=== PATIENT | female | born 1945 | race Caucasian/White ===

== ENCOUNTER → 2017-11-22 17:34 | Outpatient (CLI) | payer MEDICARE, OTHER, SELFPAY ==
[2017-11-22 17:36] LABS: Mucous, Urine 0 SEEN /hpf (<or=2+)
[2017-11-22 17:52] LABS: Color, Urine Yellow (Yellow); Glucose, Dipstick Normal (Normal); Ketone-Dipstick Negative (Negative); Leukocyte Esterase-Dipstick 500 /ul (Negative); Nitrite-Dipstick Negative (Negative); Occult Blood-Urine 50 /ul (Negative); Protein-Dipstick Negative (Negative); Specific Gravity, Urine 1.005 (1.002-1.030); Urine Bilirubin Dipstick Negative (Negative); Urine Clarity Cloudy (Clear); Urine Urobilinogen Normal (Normal)
[2017-11-22 18:39] LABS: Bacteria 1+ /hpf (None Seen); Red Blood Cells-Urine 0-5 SEEN /hpf (0-5); Squamous Epithelial Cells - UA 0-5 SEEN /hpf (5-10); White Blood Cells >100 SEEN /hpf (0-5)
== END ==
PROVIDERS: Visit Provider Physician Assistant Surgical
DX: N39.0 Urinary tract infection, site not specified (principal); R30.0 Dysuria
CPT/HCPCS: 81001; 87077; 87086; 87088; 87186

== ENCOUNTER → 2018-08-15 06:15 | Outpatient (CLI) | payer MEDICARE, OTHER, SELFPAY ==
[2018-08-05 15:59] VITALS: BMI 25.8
--- NOTE | 2018-08-15 06:37 | EKG12_ITS ---
Test Reason : CP Blood Pressure : / mmHG Vent. Rate : 060 BPM Atrial Rate : 060 BPM P-R Int : 160 ms QRS Dur : 084 ms QT Int : 442 ms P-R-T Axes : 049 012 040 degrees QTc Int : 442 ms Normal sinus rhythm Normal ECG Confirmed by MICHAEL WATSON, LUCINA ([id number]), purchase request editor SKYLER COY ([id number] on 08/18/2018 1:28:53 PM Referred By: Isaiah Zapata Confirmed By:LUCINA RODRIGUEZ MD
--- NOTE | 2018-08-15 14:30 | STRESSREP ---
Stress Test Report Date: 08/15/2018 Procedure: Pharmacologic stress nuclear imaging study Indications: Chest pain Consent: Per the patient Procedure: The patient underwent pharmacologic (Regadenoson) evaluation with a peak heart rate of 107 beats per minute (73 predicted maximal heart rate) and a peak blood pressure of 142/80 mmHg. The baseline ECG demonstrated normal sinus rhythm. The peak pharmacologic ECG demonstrated no obvious ECG changes. There were no cardiac dysrhythmias pretest, during pharmacologic infusion, or recovery. There was no complaint of chest discomfort during pharmacologic infusion or recovery. The examination was discontinued secondary to completion of protocol. Impression: 1. Pharmacologic (Regadenoson) evaluation 2. Peak pharmacologic ECG with no obvious ECG changes. 3. There were no cardiac dysrhythmias pretest, during pharmacologic infusion, or recovery. 4. Nuclear images pending Myocardial perfusion imaging study: Technique: The patient was injected with 11.4 millicuries of technetium 99m Cardiolite and subsequently rest SPECT Cardiolite nuclear imaging was obtained in the horizontal long, vertical long, and short axis views. The patient underwent pharmacologic (Regadenoson) evaluation with a peak heart rate of 107 beats per minute (73 % percent predicted maximal heart rate) and a peak blood pressure of 142/80 mmHg. The patient was injected with 33.1 millicuries of technetium 99m Cardiolite and subsequently stress SPECT Cardiolite nuclear imaging was obtained in the horizontal long, vertical long, and short axis views. A gated Cardiolite study at peak stress was obtained. Interpretation: Rest and stress SPECT Cardiolite nuclear imaging status post realignment, normalization, and attenuation correction demonstrate relative uniform tracer uptake and myocardial perfusion appearing within normal limits. There is end systolic thickening and brightening. The gated Cardiolite study demonstrates myocardial thickening and inward wall motion. The reported LVEF is 55 %. Impression: 1. Rest and stress SPECT Cardiolite nuclear imaging demonstrate relative uniform tracer uptake and myocardial perfusion appearing within normal limits. 2. The gated Cardiolite study reports an LVEF of 55 %. This note was generated with [employer] software. It may contain incorrect words, spelling, and punctuation that were not noted in checking the note before signing.
== END ==
PROVIDERS: Family Provider Family Medicine; PCP Family Medicine; Referring Provider Family Medicine; Visit Provider Family Medicine
DX: R07.9 Chest pain, unspecified (principal)
CPT/HCPCS: 78452; 93005; 93017; A9500; A4216; J2785

== ENCOUNTER → 2018-11-13 09:53 | Outpatient (CLI) | payer MEDICARE, OTHER, SELFPAY ==
[2018-11-12 14:01] VITALS: BMI 25.8
[2018-11-13 12:24] LABS: Absolute Lymphocyte Count 2.72 X10^3/ul (0.83-4.51); Absolute Neutrophil Count 3.2 X10^3/uL (2.0-7.7); Basophil# 0.05 X10^3/uL; Basophil% 0.7 % (0-1); Eosinophil# 0.21 X10^3/uL; Hematocrit 40.6 % (37-47); Hemoglobin 12.9 g/dl (12.0-15.0); Lymphocyte # 2.72 X10^3/ul (4.0); Lymphocyte % 38.3 % (19-41); Mean Corp Hgb Conc 31.8 g/gl (32-36); Mean Corpuscular Volume 88.3 fL (81-99); Mean Platelet Vol. 10.6 fl (6.2-12.0); Monocyte# 0.86 X10^3/uL; Monocyte% 12.1 % (0-10); Neutrophil # 3.23 X10^3/uL (2.7-7.7); Neutrophil % 45.5 % (47-70); Platelet Count 294 K/mm3 (150-450); RBC Distribution Width CV 13.9 % (11.6-14.6); RBC Distribution Width SD 45.1 fl (35.1-43.9); White Blood Count 7.1 K/mm3 (4.4-11.0)
[2018-11-13 12:25] LABS: POSITIVE COUNT NO; POSITIVE DIFFERENTIAL NO; POSITIVE MORPHOLOGY NO
[2018-11-13 12:54] LABS: ALB/GLOB Ratio 1.2 RATIO (0.9-2.4); AST(SGOT) 27 U/L (15-37); Alanine Aminotransfer ALT/SGPT 31 U/L (13-56); Albumin, Serum 3.9 g/dL (3.2-5.0); Alkaline Phosphatase 58 U/L (45-117); Anion Gap 8 (5-15); BUN 7 mg/dL (7-18); BUN/Creat Ratio 8.9 RATIO (10-20); Calcium,Total 8.6 mg/dL (8.5-10.1); Chloride 100 mmol/L (98-107); Cholesterol 230 mg/dL (200); Creatinine, Serum 0.79 mg/dL (0.55-1.02); EST Glomerular Filtration Rate 76 mL/min (>60); Est Glom Filt Rate - Afr Amer 92 mL/min (>60); Globulin 3.2 g/dL (2.2-4.2); Glucose 89 mg/dL (74-106); High Density Lipoprotein 56 mg/dL; Potassium 3.3 mmol/L (3.5-5.1); Protein, Total 7.1 g/dL (6.4-8.2); Sodium Level 139 mmol/L (136-145); Thyroid Stim Hormone (TSH) 1.32 uIU/mL (0.358-3.74); Triglycerides 197 mg/dL; Very Low Density Lipoprotein 39 mg/dL (5-40)
== END ==
PROVIDERS: Family Provider Family Medicine; PCP Family Medicine; Visit Provider Family Medicine
DX: I10 Essential (primary) hypertension (principal); R07.9 Chest pain, unspecified; D64.9 Anemia, unspecified; K21.9 Gastro-esophageal reflux disease without esophagitis
CPT/HCPCS: 36415; 80053; 80061; 84443; 85025

== ENCOUNTER → 2018-12-23 | Outpatient (CLI) | payer MEDICARE, OTHER, SELFPAY ==
[2018-11-12 14:01] VITALS: BMI 25.8
--- NOTE | 2018-12-23 14:22 | BI_ITS ---
MAMMOGRAPHY - BILATERAL SCREENING REASON FOR EXAM: Female, 73 years old. Routine annual screening examination. PERTINENT HISTORY: Non-contributory. TECHNIQUE: Digital bilateral breast merlin (3D mammographic acquisition) in the CC and MLO projections. 2-D mediolateral oblique (MLO) and craniocaudad (CC) views of both breasts were obtained. CAD: Full Field Digital Mammography with Computer Added Detection was performed. COMPARISON: Comparison is made with prior outside examination dated May 07, 2017. FINDINGS: Breast Composition: The breasts are heterogeneously dense, which may obscure small masses. There are no dominant masses or suspicious calcifications. No other significant abnormalities are identified. There has been no significant change since the prior study. BI/SCREEN MAMM (CAD) W/MERLIN BILAT IMPRESSION: Stable bilateral screening mammogram. Yearly follow-up mammogram recommended. (A) ASSESSMENT CATEGORY: BIRADS Category 1: Negative. A letter regarding these results will be sent to the patient by the facility within 30 days. Approximately 10% of breast cancers are not detected by mammography. A normal mammogram should not delay biopsy of a clinically suspicious abnormality. [id number] Electronically Signed: Timbo Cox, at 8:49 EDT , Service support ,
--- NOTE | 2018-12-23 14:25 | BD_ITS ---
STUDY: DUAL ENERGY X-RAY ABSORPTIOMETRY / DXA REASON FOR EXAM: Female, 73 years old. The patient is postmenopausal. Loss of height. TECHNIQUE: Bone Mineral Density (BMD) measurements of lumbar spine and bilateral hips were obtained. COMPARISON: None. FINDINGS: Lumbar Spine (L1-L4): g/cm2 (0.948) / T-score (-1.8) / Z-score (-0.1) Findings are suggestive of osteopenia with a moderate fracture risk. Left Femur Total: g/cm2 (0.840) / T-score (-1.3) / Z-score (0.4) Left Femoral Neck: g/cm2 (0.821) / T-score (-1.6) / Z-score (0.3) Right Femur Total: g/cm2 (0.878) / T-score (-1.0) / Z-score (0.7) Right Femoral Neck: g/cm2 (0.842) / T-score (-1.4) / Z-score (0.5) BD/Dexa Bone Density Study IMPRESSION: The patient is considered osteopenic as outlined below according to World Irving Organization (WHO) criteria with a moderate fracture risk. Reference Information: The T-score is the number of standard deviations above or below the standard which is normal for young adults at their peak bone mineral density. The World Health Organization (WHO) interprets the T-scores as follows: Above -1 Normal bone density Between -1 and -2.5 Osteopenia Equal to / or below -2.5 Osteoporosis As a practical clinical guideline, osteopenia may be graded as follows: Mild -1 through -1.5 Moderate -1.6 through -2.0 Severe -2.1 through -2.4 The Z-score is the number of standard deviations above or below age-matched controls. A Z-score of less than -1.5 would be considered abnormal. References: 1. NIH Osteoporosis and Related Bone Diseases http://www.osteo.org 2. International Society for Clinical Densitometry http://www.iscd.org 3. National Osteoporosis Foundation http://www.nof.org Electronically Signed: Timbo Cox, at 13:33 EDT , Service support ,
== END | disposition home or self-care (01) ==
LOC: OPBD 14:20
PROVIDERS: Family Provider Family Medicine; PCP Family Medicine; Referring Provider Family Medicine; Visit Provider Family Medicine
DX: M81.0 Age-related osteoporosis without current pathological fracture (principal); Z12.31 Encounter for screening mammogram for malignant neoplasm of breast
CPT/HCPCS: 77063; 77067; 77080

== ENCOUNTER → 2020-03-22 | Outpatient (CLI) | payer MEDICARE, OTHER, SELFPAY ==
[2020-03-22 10:11] VITALS: BMI 25.8
[2020-03-22 12:57] LABS: ALB/GLOB Ratio 1.1 RATIO (0.9-2.4); AST(SGOT) 19 U/L (15-37); Alanine Aminotransfer ALT/SGPT 29 U/L (13-56); Albumin, Serum 3.7 g/dL (3.2-5.0); Alkaline Phosphatase 58 U/L (45-117); Anion Gap 5 (5-15); BUN 11 mg/dL (7-18); Calcium,Total 8.8 mg/dL (8.5-10.1); Chloride 100 mmol/L (98-107); Cholesterol 170 mg/dL (200); Creatinine, Serum 0.85 mg/dL (0.55-1.02); EST Glomerular Filtration Rate 69 mL/min (>60); Est Glom Filt Rate - Afr Amer 84 mL/min (>60); Globulin 3.3 g/dL (2.2-4.2); Glucose 103 mg/dL (74-106); High Density Lipoprotein 49 mg/dL; Sodium Level 136 mmol/L (136-145); Triglycerides 215 mg/dL; Very Low Density Lipoprotein 43 mg/dL (5-40)
== END | disposition home or self-care (01) ==
LOC: BIMLAB 10:44
PROVIDERS: PCP Family Medicine; Referring Provider Family Medicine; Visit Provider Family Medicine
DX: I10 Essential (primary) hypertension (principal); R07.9 Chest pain, unspecified
CPT/HCPCS: 36415; 80053; 80061

== ENCOUNTER → 2020-07-22 | Outpatient (CLI) | payer MEDICARE, OTHER, SELFPAY | END | disposition home or self-care (01) | LOC: LABSPEC 13:59 | PROVIDERS: PCP Family Medicine; Referring Provider Nurse Practitioner Family; Visit Provider Nurse Practitioner Family | DX: U07.1 COVID-19 (principal); R05 Cough; R50.9 Fever, unspecified | CPT/HCPCS: 87635; 87804; U0003 ==

== ENCOUNTER 2020-11-23 08:58 | Outpatient (RCR) | payer MEDICARE, OTHER, SELFPAY | END 2021-01-24 23:59 | LOC: IMMUN 08:58 | PROVIDERS: PCP Family Medicine; Visit Provider Family Medicine | DX: Z23 Encounter for immunization (principal) | CPT/HCPCS: 0001A; 0002A; 91300 ==

== ENCOUNTER → 2020-12-29 | Outpatient (CLI) | payer MEDICARE, OTHER, SELFPAY ==
[2020-12-29 10:41] VITALS: BMI 25.8
== END | disposition home or self-care (01) ==
LOC: LABSPEC 11:19
PROVIDERS: PCP Family Medicine; Referring Provider Family Medicine; Visit Provider Family Medicine
DX: N89.8 Other specified noninflammatory disorders of vagina (principal)
CPT/HCPCS: 87070; 87205

== ENCOUNTER → 2021-04-11 10:49 | Outpatient (CLI) | payer MEDICARE, OTHER, SELFPAY ==
[2021-04-11 12:30] LABS: Absolute Lymphocyte Count 1.96 X10^3/uL (0.83-4.51); Absolute Neutrophil Count 3.8 X10^3/uL (2.0-7.7); Basophil# 0.06 X10^3/uL; Basophil% 0.9 % (0-1); Eosinophil# 0.24 X10^3/uL; Eosinophils% 3.5 % (0-5); Hematocrit 38.7 % (37-47); Hemoglobin 12.1 g/dL (12.0-15.0); Lymphocyte # 1.96 X10^3/ul (0.83-4.51); Lymphocyte % 28.7 % (19-41); Mean Corp Hgb Conc 31.3 g/dL (32-36); Mean Corpuscular Hgb 28.1 pg (27.0-32.0); Mean Corpuscular Volume 89.8 fL (81-99); Mean Platelet Vol. 10.1 fl (6.2-12.0); Monocyte# 0.77 X10^3/uL; Monocyte% 11.3 % (0-10); NRBC Flagged by Analyzer 0 % (0-5); Neutrophil # 3.75 X10^3/uL (2.7-7.7); Platelet Count 283 K/mm3 (150-450); RBC Distribution Width CV 13.8 % (11.6-14.6); RBC Distribution Width SD 45.5 fl (35.1-43.9); Red Blood Count 4.31 M/mm3 (4.2-5.4); White Blood Count 6.8 K/mm3 (4.4-11.0)
[2021-04-11 12:41] LABS: ALB/GLOB Ratio 1.1 RATIO (0.9-2.4); AST(SGOT) 28 U/L (15-37); Alanine Aminotransfer ALT/SGPT 33 U/L (13-56); Albumin, Serum 3.7 g/dL (3.2-5.0); Alkaline Phosphatase 65 U/L (45-117); Anion Gap 6 (5-15); BUN 20 mg/dL (7-18); BUN/Creat Ratio 22.6 RATIO (10-20); Calcium,Total 9.1 mg/dL (8.5-10.1); Chloride 105 mmol/L (98-107); Cholesterol 206 mg/dL (200); Creatinine, Serum 0.88 mg/dL (0.55-1.02); EST Glomerular Filtration Rate 66 mL/min (>60); Est Glom Filt Rate - Afr Amer 80 mL/min (>60); Globulin 3.5 g/dL (2.2-4.2); Glucose 116 mg/dL (74-106); High Density Lipoprotein 57 mg/dL; Potassium 3.8 mmol/L (3.5-5.1); Protein, Total 7.2 g/dL (6.4-8.2); Sodium Level 141 mmol/L (136-145); Triglycerides 198 mg/dL; Very Low Density Lipoprotein 40 mg/dL (5-40)
== END ==
PROVIDERS: PCP Family Medicine; Referring Provider Family Medicine; Visit Provider Family Medicine
DX: I10 Essential (primary) hypertension (principal)
CPT/HCPCS: 36415; 80053; 80061; 85025

== ENCOUNTER 2021-10-17 13:26 | Outpatient (CLI) | payer MEDICARE, OTHER, SELFPAY ==
[2021-10-17 15:32] LABS: Absolute Lymphocyte Count 3.47 X10^3/uL (0.83-4.51); Absolute Neutrophil Count 4.2 X10^3/uL (2.0-7.7); Basophil# 0.08 X10^3/uL; Basophil% 0.9 % (0-1); Eosinophil# 0.32 X10^3/uL; Eosinophils% 3.6 % (0-5); Hematocrit 38.9 % (37-47); Hemoglobin 12.6 g/dL (12.0-15.0); Lymphocyte # 3.47 X10^3/ul (0.83-4.51); Lymphocyte % 38.6 % (19-41); Mean Corp Hgb Conc 32.4 g/dL (32-36); Mean Corpuscular Hgb 28.2 pg (27.0-32.0); Mean Platelet Vol. 10.3 fl (6.2-12.0); Monocyte# 0.86 X10^3/uL; Monocyte% 9.6 % (0-10); NRBC Flagged by Analyzer 0 % (0-5); Neutrophil # 4.21 X10^3/uL (2.7-7.7); Neutrophil % 46.9 % (47-70); Platelet Count 309 K/mm3 (150-450); RBC Distribution Width CV 13.8 % (11.6-14.6); RBC Distribution Width SD 44.4 fl (35.1-43.9); Red Blood Count 4.47 M/mm3 (4.2-5.4)
== END 2021-10-17 23:59 | disposition home or self-care (01) ==
LOC: BIMLAB 13:27
PROVIDERS: PCP Family Medicine; Referring Provider Family Medicine; Visit Provider Family Medicine
DX: I10 Essential (primary) hypertension (principal)
CPT/HCPCS: 36415; 85025

== ENCOUNTER → 2022-11-29 | Outpatient (CLI) | payer MEDICARE, OTHER, SELFPAY ==
[2022-11-29 17:00] LABS: ALB/GLOB Ratio 1.1 RATIO (0.9-2.4); AST(SGOT) 25 U/L (15-37); Alanine Aminotransfer ALT/SGPT 32 U/L (13-56); Albumin, Serum 3.8 g/dL (3.2-5.0); Alkaline Phosphatase 76 U/L (45-117); Anion Gap 4 (5-15); BUN 17 mg/dL (7-18); BUN/Creat Ratio 19.8 RATIO (10-20); Calcium,Total 9.5 mg/dL (8.5-10.1); Chloride 100 mmol/L (98-107); Creatinine, Serum 0.86 mg/dL (0.55-1.02); EST Glomerular Filtration Rate 68 mL/min (>60); Est Glom Filt Rate - Afr Amer 82 mL/min (>60); Globulin 3.5 g/dL (2.2-4.2); Glucose 104 mg/dL (74-106); Potassium 3.8 mmol/L (3.5-5.1); Protein, Total 7.3 g/dL (6.4-8.2); Sodium Level 136 mmol/L (136-145)
[2022-11-29 17:01] LABS: Vitamin D,25 Hydroxy 58.2 ng/mL
== END | disposition home or self-care (01) ==
LOC: BIMLAB 15:52
PROVIDERS: PCP Family Medicine; Visit Provider Family Medicine
DX: M81.0 Age-related osteoporosis without current pathological fracture (principal)
CPT/HCPCS: 36415; 80053; 82306

== ENCOUNTER → 2022-12-11 | Outpatient (CLI) | payer MEDICARE, OTHER, SELFPAY ==
--- NOTE | 2022-12-11 13:47 | BD_ITS ---
STUDY: DUAL ENERGY X-RAY ABSORPTIOMETRY / DXA REASON FOR EXAM: Female, 77 years old. Osteoporosis TECHNIQUE: Bone Mineral Density (BMD) measurements of lumbar spine and bilateral hips were obtained. COMPARISON: Comparison is made with prior study dated December 23, 2018. FINDINGS: Lumbar Spine (L1-L4): g/cm2 (0.987) / T-score (-0.5) / Z-score (2.1) Findings are suggestive of normal bone density with a low fracture risk. Left Femur Total: g/cm2 (0.855) / T-score (-0.7) / Z-score (1.3) Left Femoral Neck: g/cm2 (0.693) / T-score (-1.4) / Z-score (0.8) Right Femur Total: g/cm2 (0.883) / T-score (-0.5) / Z-score (1.5) Right Femoral Neck: g/cm2 (0.711) / T-score (-1.2) / Z-score (1.0) The T-Scores on the most recent prior examination were: Lumbar Spine (L1-L4): There has been improvement of bone density since the previous examination. Left Femur Total: which represents an improvement of 9.8%. Right Femur Total: which represents an improvement of 8.2%. BD/Dexa Bone Density Study IMPRESSION: The patient is considered osteopenic as outlined below according to World Irving Organization (WHO) criteria with a low fracture risk. There has been improvement of bone density since the previous examination. Reference Information: The T-score is the number of standard deviations above or below the standard which is normal for young adults at their peak bone mineral density. The World Health Organization (WHO) interprets the T-scores as follows: Above -1 Normal bone density Between -1 and -2.5 Osteopenia Equal to / or below -2.5 Osteoporosis As a practical clinical guideline, osteopenia may be graded as follows: Mild -1 through -1.5 Moderate -1.6 through -2.0 Severe -2.1 through -2.4 The Z-score is the number of standard deviations above or below age-matched controls. A Z-score of less than -1.5 would be considered abnormal. References: 1. NIH Osteoporosis and Related Bone Diseases www osteo.org 2. International Society for Clinical Densitometry www iscd.org 3. National Osteoporosis Foundation www nof.org Electronically Signed: Timbo Cox MD at 14:45 EDT ,
== END | disposition home or self-care (01) ==
LOC: OPBD 13:42
PROVIDERS: PCP Family Medicine; Referring Provider Family Medicine; Visit Provider Family Medicine
DX: M81.0 Age-related osteoporosis without current pathological fracture (principal)
CPT/HCPCS: 77080

== ENCOUNTER → 2023-03-08 | Outpatient (CLI) | payer MEDICARE, OTHER, SELFPAY ==
[2023-03-08 13:22] LABS: ALB/GLOB Ratio 0.9 RATIO (0.9-2.4); AST(SGOT) 26 U/L (15-37); Alanine Aminotransfer ALT/SGPT 31 U/L (13-56); Albumin, Serum 3.7 g/dL (3.2-5.0); Alkaline Phosphatase 73 U/L (45-117); Anion Gap 7 (5-15); BUN 13 mg/dL (7-18); BUN/Creat Ratio 12.7 RATIO (10-20); Chloride 100 mmol/L (98-107); Cholesterol 152 mg/dL (200); Creatinine, Serum 1.02 mg/dL (0.55-1.02); EST Glomerular Filtration Rate 56 mL/min (>60); Est Glom Filt Rate - Afr Amer 67 mL/min (>60); Globulin 3.9 g/dL (2.2-4.2); Glucose 173 mg/dL (74-106); High Density Lipoprotein 59 mg/dL; Potassium 3.6 mmol/L (3.5-5.1); Protein, Total 7.6 g/dL (6.4-8.2); Sodium Level 135 mmol/L (136-145); Triglycerides 110 mg/dL; Very Low Density Lipoprotein 22 mg/dL (5-40)
== END | disposition home or self-care (01) ==
LOC: BIMLAB 09:40
PROVIDERS: PCP Family Medicine; Referring Provider Family Medicine; Visit Provider Family Medicine
DX: I10 Essential (primary) hypertension (principal)
CPT/HCPCS: 36415; 80053; 80061

== ENCOUNTER → 2023-03-12 | Outpatient (CLI) | payer MEDICARE, OTHER, SELFPAY | END | disposition home or self-care (01) | LOC: BIMLAB 15:24 | PROVIDERS: PCP Family Medicine; Referring Provider Internal Medicine; Visit Provider Internal Medicine | DX: R73.09 Other abnormal glucose (principal) | CPT/HCPCS: 36415; 83036 ==

== ENCOUNTER → 2023-06-18 | Outpatient (CLI) | payer MEDICARE, OTHER, SELFPAY ==
--- NOTE | 2023-06-18 10:43 | RAD_ITS ---
STUDY: X-RAY - CERVICAL SPINE REASON FOR EXAM: Female, 78 years old. RADICULOPATHY, CERVICOTHORACIC REGION TECHNIQUE: 5 view(s) of the cervical spine were obtained. COMPARISON: None FINDINGS: Normal anterior atlantoaxial articulation. Normal odontoid process. Normal cervical lordosis. There is multi-level endplate spondylosis. There is multi-level degenerative disc disease with multilevel disc space narrowing. Normal visualized intervertebral neuroforamina. The soft tissue structures are unremarkable. RAD/Cerv Spine 4 or 5 Views IMPRESSION: Moderate degenerative disc disease lower cervical spine. MRI may be useful. Electronically Signed: Reece Berumen MD at 20:41 EDT ,
== END | disposition home or self-care (01) ==
LOC: RAD.FUTURE 10:41 → RAD 10:42
PROVIDERS: PCP Family Medicine; Referring Provider Chiropractor; Visit Provider Chiropractor
DX: M45.A6 Non-radiographic axial spondyloarthritis of lumbar region (principal); M45.A7 Non-radiographic axial spondyloarthritis of lumbosacral region; M99.01 Segmental and somatic dysfunction of cervical region; M99.02 Segmental and somatic dysfunction of thoracic region; M99.03 Segmental and somatic dysfunction of lumbar region; M51.34 Other intervertebral disc degeneration, thoracic region; M54.13 Radiculopathy, cervicothoracic region
CPT/HCPCS: 72050

== ENCOUNTER → 2023-09-03 | Outpatient (CLI) | payer MEDICARE, OTHER, SELFPAY ==
--- NOTE | 2023-09-03 09:00 | RAD_ITS ---
STUDY: X-RAY - ESOPHAGUS (BARIUM SWALLOW) WITH FLUOROSCOPY REASON FOR EXAM: Female, 78 years old. DYSPHAGIA TECHNIQUE: 11 view(s) of the esophagus were obtained following swallowing of barium. FLUOROSCOPY TIME (if supplied): (43 seconds) minutes/seconds. 7.11 mGy COMPARISON: None. FINDINGS: There is no demonstrated esophageal foreign body. There is no demonstrated stricture or mucosal abnormality. Normal gastroesophageal junction, without a demonstrated hiatal hernia. The patient ingested a 12 mm tablet of barium without any difficulty. Normal visualized aortic arch and descending thoracic aorta. Normal visualized pulmonary parenchyma. There are diffuse degenerative changes of the visualized thoracic spine. RAD/Esophagus Single Contrast IMPRESSION: Normal plain film x-ray examination (barium swallow) of the esophagus. Electronically Signed: Timbo Cox MD at 10:04 [facility] ,
== END | disposition home or self-care (01) ==
LOC: RAD 08:53
PROVIDERS: PCP Family Medicine; Referring Provider Internal Medicine Gastroenterology; Visit Provider Internal Medicine Gastroenterology
DX: R13.10 Dysphagia, unspecified (principal)
CPT/HCPCS: 74220

== ENCOUNTER 2023-10-07 14:30 | Outpatient (RCR) | payer MEDICARE, OTHER, SELFPAY ==
--- NOTE | 2023-09-19 07:19 | HP.OTEVAL_ITS ---
Patient's Visit Information Visit Information Visit Information: ANTONIO MEREDITH is a 78 year old F, referred to Occupational Therapy by Dr. Isaiah Zapata DO, with a diagnosis of tingling/numbness. Date of Evaluation: 09/18/23 Occupational Therapist: MARYAM Aragon/Armida, CHT Subjective Subjective: This 78 year old female was seen for OT eval with dx of paresthesia of the skin. pt states she has had tingling/numbness on and off for about two years. Pt states mostly if she is on her cell phone or combing her hair. pt states left hand is numb in AM. pt states she does see a chiropractor and she wants her to have a MRI of her neck. pt states she would just like the tingling and numbness. 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 with ADLs and IADLs by d/c Goal:: pt will report a decrease in tingling by 75% indicating nerve healing by d/c Goal:: pt will demo understanding of nerve protection angelica. by end of 1st session to decrease prolonged nerve compression. Goal:: pt will demo understanding of using brace for left elbow at night to decrease prolonged nerve impingement by d/c Rehabilitation General Assessment: pt is demo with symptoms of positional nerve compression at elbow and wrist. This interferes with pts performance of ADLs and IADLs. PT would benefit from skilled OT 2x a week for 4 weeks to decrease pts symptoms to increase pts ind. with ADls and IADls. Today therapist ed. pt to avoid prolonged sitting with elbow bent and wrist flexed as this is her trigger of tingling and numbness. Pt agreed. Therapist ed. pt on ulnar nerve glides and ibrahim nerve gl ides as well as support of elbow while sleeping to prevent bending elbow at night. Pt demo understanding and agree to POC. Rehabilitation Potential: Good Anticipated Interventions Anticipated Interventions: Strengthening, Triggerpoint Release, Sensory Retraining, Modalities, Orthoses, Joint Protection/Energy Conservation, Er gonomic Education and Education re Diagnosis Visit Plan Frequency: 1-2x /Week Duration: 4 Weeks General Plan: may initiate US TEXT: Thank you for the opportunity to evaluate your patient. For Medicare and Medicare HMO plans, please review the plan of care and approve it. It will need to be FAXED BACK to us at [phone] for Medicare purposes. Please let me know if there are questions or concerns regarding this plan of care. Physician Signature: Date:
--- NOTE | 2023-10-07 14:55 | OTREVAL_ITS ---
Re-Evaluation Intro: Dr. Isaiah Zapata, DO, It has been my pleasure to treat ANTONIO MEREDITH over the last 6 visits for tingling/numbness. Please see the progress note below for an update on the occupational therapy plan of care! Subjective Subjective: pt arrives to session states she continues to have numbness and tingling when keeping her elbow bent for longer periods of time. Objective Objective/Function: pt continues to struggle with left hand tingling/numbness when her elbow is bent- monofilament testing indicates a change in sensation from left digits at 3.61 to a increase in sensation deficits to 3.84. 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 pt has been educated on ulnar nerve precautions and limit her bending her left elbow for long periods of time. pt is trying her best to avoid bending her elbow, but she still will get tingling and numbness. Due to a increase in digit numbness/tingling rec'd pt to return to for nerve conduction testing. Plan Plan Visits in this POC: (Insurance - $2230) 4 weeks (1-2x week) Plan: pt to return to due to a decrease in left digit sensation change. 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 with ADLs and IADLs by d/c Goal:: pt will report a decrease in tingling by 75% indicating nerve healing by d/c Goal:: pt will demo understanding of nerve protection angelica. by end of 1st session to decrease prolonged nerve compression. Goal:: pt will demo understanding of using brace for left elbow at night to decrease prolonged nerve impingement by d/c Anticipated Interventions Anticipated Interventions Anticipated Interventions: Strengthening, Triggerpoint Release, Sensory Retraining, Modalities, Orthoses, Joint Protection/Energy Conservation, Ergonomic Education and Education re Diagnosis Re-Evaluation Ending Re-evaluation ending: Please do not hesitate to contact me at [phone] by phone or if you have questions or concerns regarding this new plan of care! Sincerely, Khushi Childs, OTR/L, CHT
== END 2023-10-07 19:00 | disposition home or self-care (01) ==
LOC: OT 14:30
PROVIDERS: PCP Family Medicine; Visit Provider Family Medicine
DX: R20.0 Anesthesia of skin (principal); R20.2 Paresthesia of skin
CPT/HCPCS: 97035; 97110; 97140; 97165

== ENCOUNTER → 2023-11-19 | Outpatient (CLI) | payer MEDICARE, OTHER, SELFPAY ==
--- NOTE | 2023-11-19 11:03 | MRI_ITS ---
STUDY: MRI CERVICAL SPINE WITHOUT CONTRAST REASON FOR EXAM: Female, 78 years old. Left hand numbness. Cervical radiculopathy. TECHNIQUE: Standardized fat and water weighted pulse sequences were obtained in the sagittal and axial planes. COMPARISON: Cervical spine radiographs 06/18/2023. FINDINGS: Normal foramen magnum and brainstem-cervical cord junction. Normal craniovertebral junction. Normal anterior atlantoaxial articulation. Normal odontoid process. Normal cervical lordosis. Small posterior T1 benign vertebral body hemangioma. No focal signal abnormalities throughout the osseous elements of the cervical spine. C2-3: Normal endplates. Normal disc height, signal and morphology. Normal central canal and intervertebral neural foramina. C3-4: Normal endplates. Normal disc height. Minimal degenerative anterolisthesis of C3 on C4. Normal central canal and intervertebral neural foramina. Moderate bilateral degenerative facet arthropathy, left greater than right. C4-5: Normal endplates. Normal disc height. Minimal degenerative anterolisthesis of C4 on C5. Normal central canal and intervertebral neural foramina. Moderate bilateral degenerative facet arthropathy. C5-6: Normal endplates. Mild disc space height narrowing. Mild ventral extradural defect due to small posterior bulging annulus and posterior marginal spurs. Normal central canal and intervertebral neural foramina. C6-7: Normal C6 inferior endplate. Minimal central cavity of the C7 superior endplate from remote compression fracture causing increased anterior disc space height. Normal central canal and intervertebral neural foramina. C7-T1: Normal endplates. Normal disc height. Minimal degenerative anterolisthesis of C7 on T1. Normal central canal and intervertebral neural foramina. T1-T2: (Sagittal) (. Normal endplates. Normal disc height. Mild ventral extradural defect due to posterior bulging annulus. Normal central canal and intervertebral neural foramina. T2-3: (Sagittal only). Normal endplates. Normal disc height. Minimal degenerative anterolisthesis of T2 on T3. Normal central canal and intervertebral neural foramina. T3-T4: (Sagittal only). Normal endplates. Normal disc height and morphology. Minimal degenerative anterolisthesis of T3 on T4. Normal central canal and intervertebral neural foramina. T4-T5: (Sagittal only). Normal endplates. Normal disc height and morphology. Minimal degenerative anterolisthesis of T4 on T5. Normal central canal and intervertebral neural foramina. T5-T6: (Sagittal only). Normal endplates. Normal disc height and morphology. Normal central canal and intervertebral neural foramina. Normal cervical cord. Normal upper thoracic spinal cord. Normal included portions of the midline present and cerebellum. Normal included midline pituitary gland. Normal visualized soft tissue structures. MRI/Spine Cervical (Routine) IMPRESSION: 1. Minimal old central compression fracture of the C7 superior endplate causing increased anterior C6-C7 disc space height. 2. Multilevel minimal degenerative anterolisthesis of C3 on C4, C4 on C5, C7 on T1, T2 on T3, T3 on T4 and T4 on T5. 3. No MRI evidence of cervical extruded disc fragment, cervical spinal stenosis or cervical nerve root displacement. 4. Normal cervical spinal cord. Electronically Signed: Kevin Garcia MD at 11:32 EDT ,
== END | disposition home or self-care (01) ==
LOC: MRI 10:45
PROVIDERS: PCP Family Medicine; Referring Provider Family Medicine; Visit Provider Family Medicine
DX: M54.12 Radiculopathy, cervical region (principal)
CPT/HCPCS: 72141

== ENCOUNTER 2023-12-03 12:20 | Inpatient (IN) | payer MEDICARE, OTHER, SELFPAY ==
[2023-12-03] VITALS (16 sets, daily range): BP systolic 112–140; BP diastolic 38–100; PULSE 64–82; RESP 16–22; TEMP 36.6–37.2; O2SAT 85–98; BMI 25.4; BMI 25.0
--- NOTE | 2023-12-03 13:15 | EKG12_ITS ---
Test Reason : SOB Blood Pressure : / mmHG Vent. Rate : 070 BPM Atrial Rate : 070 BPM P-R Int : 134 ms QRS Dur : 084 ms QT Int : 428 ms P-R-T Axes : 000 007 030 degrees QTc Int : 462 ms Normal sinus rhythm Normal ECG Confirmed by TONY MCKEON MD ([id number]), news videotape editor NATASHA RODRIGUEZ ([id number]) on 12/04/2023 9:17:18 AM Referred By: Confirmed By:TONY MCKEON MD
--- NOTE | 2023-12-03 13:20 | RAD_ITS ---
STUDY: X-RAY CHEST REASON FOR EXAM: Female, 78 years old. Chest pain TECHNIQUE: Single AP portable view of the chest. COMPARISON: None. FINDINGS: EKG electrodes are seen. The lungs are clear and expanded. There is no demonstrated pleural abnormality. Normal size heart. Normal mediastinum and caitlin. Normal visualized pulmonary arteries. There is atherosclerotic tortuosity of the aortic arch and descending thoracic aorta. Mild dextroscoliosis. Normal visualized ribs, clavicles, and shoulders. There is no demonstrated abnormality of the visualized soft tissue structures of the upper abdomen. RAD/Chest 1 View (Portable) IMPRESSION: The lungs are clear. Electronically Signed: Timbo Cox MD at 14:04 EDT ,
[2023-12-03 13:29] LABS: Absolute Lymphocyte Count 1.12 X10^3/uL (0.83-4.51); Absolute Neutrophil Count 4.2 X10^3/uL (2.0-7.7); Basophil# 0.05 X10^3/uL; Basophil% 0.8 % (0-1); Eosinophil# 0.14 X10^3/uL; Eosinophils% 2.2 % (0-5); Hematocrit 35.2 % (37-47); Hemoglobin 11.5 g/dL (12.0-15.0); Lymphocyte # 1.12 X10^3/ul (0.83-4.51); Lymphocyte % 17.3 % (19-41); Mean Corp Hgb Conc 32.7 g/dL (32-36); Mean Corpuscular Hgb 27.6 pg (27.0-32.0); Mean Corpuscular Volume 84.6 fL (81-99); Mean Platelet Vol. 9.7 fl (6.2-12.0); Monocyte# 0.93 X10^3/uL; Monocyte% 14.4 % (0-10); NRBC Flagged by Analyzer 0 % (0-5); Neutrophil % 64.8 % (47-70); Platelet Count 194 K/mm3 (150-450); RBC Distribution Width CV 14.6 % (11.6-14.6); RBC Distribution Width SD 45.2 fl (35.1-43.9); Red Blood Count 4.16 M/mm3 (4.2-5.4); White Blood Count 6.5 K/mm3 (4.4-11.0)
--- NOTE | 2023-12-03 13:44 | ED.VIS.DYS ---
HPI History of Present Illness Chief Complaint: Shortness of Breath Informant: patient and spouse/S.O. Onset/Context/Timing Onset: Days Context: gradual Timing: Intermittent Quality: Positive for Dyspnea on exertion Current Severity: Mild Maximum Severity: Mild Worsened by: Exertion and Coughing Relieved by: Oxygen Associated Symptoms cough and fever Chest Pain: Positive for None Narrative Narrative: 78-year-old female history of hypertension. Diagnosed with the flu yesterday had a local urgent care. States she has not been feeling well for the last 4 days. They have a pulse ox at home and that her pulse ox has been running between 87 and 92. She is normally not on oxygen. She has no underlying lung disease. States has had a nonproductive cough low-grade fever around 100. No vomiting or diarrhea. No dysuria. PE Risk Factors: Negative for Cancer, OCP + Smoking + > 35, Prior DVT or PE, Recent immobilization, Recent surgery or Recent travel Prior similar symptoms: No Recent Illness/Hospitalization: No PFSH PFS Medical History (Updated 12/03/23 @ 15:[address] Adam Ring MD) Anemia Arthritis Back pain Cataracts, bilateral Chronic headaches GERD (gastroesophageal reflux disease) Hearing problem HTN (hypertension) Osteoporosis Shoulder pain Home Medications yxyqgvs-vhnluqhqbdhjn-dmgaoodp 250 mg-250 mg-65 mg tablet (Excedrin Migraine) 1 tab PO ONCE 11/22/17 [History Last Taken Unknown] biotin 1 mg capsule 1 mg PO QDAY 11/22/17 [History Last Taken Unknown] calcium carbonate (Calcium 600) 600 mg PO ONCE 11/22/17 [History Last Taken Unknown] cetirizine 10 mg tablet PO 90 days ##90 11/22/17 [History Last Taken Unknown] cholecalciferol (vitamin D3) 25 mcg (1,000 unit) capsule 1,000 unit PO QDAY 11/22/17 [History Last Taken Unknown] ipratropium bromide 42 mcg (0.06 %) nasal spray intranasal 42 days ##45 11/22/17 [History Last Taken Unknown] clhdxxxo-ofj-ugbbz ac 400 mcg-calcium carb 500 mg-vit K1 20 mcg tablet tab PO 11/22/17 [History Last Taken Unknown] naproxen sodium 220 mg capsule (Aleve) 220 mg PO BID 11/22/17 [History Last Taken Unknown] omeprazole 40 mg capsule,delayed release PO 90 days ##90 11/22/17 [History Last Taken Unknown] vitamin B complex 1 cap PO QDAY 11/22/17 [History Last Taken Unknown] denosumab 60 mg/mL subcutaneous syringe (Prolia) 60 mg subcut [id number] #1 mL 02/02/19 [Rx Last Taken Unknown] montelukast 10 mg tablet (Singulair) 10 mg PO QPM 05/20/19 [History Last Taken Unknown] polyethylene glycol 3350 17 gram oral powder packet (Miralax) 17 g PO DAILY 03/22/20 [History Last Taken Unknown] zinc 50 mg tablet 50 mg PO DAILY 03/22/20 [History Last Taken Unknown] ascorbate calcium (vitamin C) 500 mg tablet 500 mg PO DAILY 12/29/20 [History Last Taken Unknown] coenzyme Q10 10 mg capsule (Co Q-10) 10 mg PO ONCE 12/29/20 [History Last Taken Unknown] metronidazole 0.75 % (37.5 mg/5 gram) vaginal gel 1 appful vaginal DAILY 5 days #70 grams 12/29/20 [Rx Last Taken Unknown] red yeast rice 600 mg capsule 600 mg PO DAILY 12/29/20 [History Last Taken Unknown] hydrochlorothiazide 12.5 mg tablet 12.5 mg PO QAM #90 tabs 06/11/23 [Rx Last Taken Unknown] vibegron 75 mg tablet (Gemtesa) mg PO 06/11/23 [History Last Taken Unknown] amitriptyline 25 mg tablet 25 mg PO QHS #90 tabs 08/15/23 [Rx Last Taken Unknown] amlodipine 5 mg tablet 5 mg PO DAILY #90 tabs 08/15/23 [Rx Last Taken Unknown] Allergy/AdvReac Type Severity Reaction Status Date / Time No Known Allergies Allergy Verified 08/15/23 13:50 Family History Father Arthritis Mother Hypertension Osteoporosis CVA (cerebral vascular accident) Brother Hypertension CVA (cerebral vascular accident) Sister Hypertension Surgical History H/O colonoscopy H/O tubal ligation History of appendectomy Social History Smoking Status: Never smoker alcohol intake: never substance use type: does not use what type of physical activity do you participate in: none ROS ROS ED ROS Narrative Cough. Fever. Short of breath. Review of Systems ROS Unobtainable: Denies due to encephalopathy Constitutional Constitutional ED: Reports fever(s); Denies chills Eyes Eyes: Denies blurry vision ENT ENT ED: Denies ear pain Cardiovascular Cardiovascular: Denies chest pain or palpitations Respiratory/Chest Respiratory/Chest: Reports cough, dyspnea and dyspnea on exertion Gastrointestinal Gastrointestinal: Denies abdominal pain Genitourinary Genitourinary ED: Denies dysuria or hematuria Musculoskeletal Musculoskeletal: Denies arthralgias or back pain Integumentary Denies abscess or Abrasions Neurologic Neurologic: Denies headache(s) Psychiatric Psychiatric: Denies anxiety or depression Endocrine Endocrinology: Denies cold intolerance Hematologic/Lymphatic Hematologic/Lymphatic: Denies easy bleeding, easy bruising or lymphadenopathy Allergic/Immunologic Allergic/Immunologic ED: Denies mouth swelling, tongue swelling or urticaria EXAM Physical Exam Narrative Exam Narrative: 78-year-old female no acute distress on oxygen. On room air she is 85 to 87%. On oxygen she is 93% on 2 L. H EENT exam unremarkable. Moist membranes. Neck nontender. No JVD. No lymphadenopathy. Lungs clear to auscultation bilaterally. Coarse breath sounds. No rhonchi or wheezing. Heart regular rhythm rate about 70 no murmur. Chest wall and ribs nontender. Abdomen soft nontender. Calves are nontender without edema or cords. Moving all 4 extremities. Normal strength. Normal range of motion. Neurologically she is awake alert no focal motor deficits. Const Vital Signs: 12/03/23 12:21 12/03/23 12:37 12/03/23 13:01 Temperature 97.8 F Temperature Source Temporal Pulse Rate 80 70 Respiratory Rate 16 Respiratory Effort Normal Non-Labored Respiratory Depth Normal Respiratory Pattern Normal Blood Pressure 140/61 H 121/47 H Blood Pressure Mean 87 71 Pulse Ox 87 Oxygen Delivery Method Room Air Room Air Oxygen Flow Rate (L/min) 90 12/03/23 13:13 12/03/23 13:15 12/03/23 13:24 Temperature 97.8 F Temperature Source Temporal Pulse Rate 69 Respiratory Rate 17 Respiratory Effort Respiratory Depth Respiratory Pattern Blood Pressure 125/62 H Blood Pressure Mean 83 Pulse Ox 85 92 93 Oxygen Delivery Method Room Air Nasal Cannula Nasal Cannula Oxygen Flow Rate (L/min) 2 2 12/03/23 14:00 12/03/23 15:00 12/03/23 15:27 Temperature 98.2 F Temperature Source Oral Pulse Rate 64 68 68 Respiratory Rate 21 H 19 H 16 Respiratory Effort Respiratory Depth Respiratory Pattern Blood Pressure 140/60 H 112/59 L Blood Pressure Mean 86 76 Pulse Ox 94 93 Oxygen Delivery Method Nasal Cannula Room Air Oxygen Flow Rate (L/min) 2 3 Positive well nourished and well developed; Negative for obese, cachectic, contractures or unkempt General Appearance ED: well developed and NAD; Negative for unkempt, cachectic, contractures or pallor Nutritional Appearance: Negative for cachectic or obese HEENT Reports moist mucous membranes; Denies dry mucous membranes atraumatic; Negative for trauma or tenderness Mouth ED: No dry mucous membranes Mouth: No dry mucous membranes Eyes PERRL and EOMs intact bilaterally General Eye ED: Negative for pale conjunctiva or scleral icterus Neck no lymphadenopathy, supple, no meningeal signs and no JVD General: Negative for tenderness Lymph Lymphatic: Negative for other Chest Wall Chest: Negative for other Resp normal respiratory effort and clear to auscultation bilaterally Resp Narrative: Coarse breath sounds bilaterally. No rales, rhonchi or wheezing. Auscultation: Negative for rales, rhonchi, wheezes or diminished lung sounds Cardio regular rate, regular rhythm, S1 normal heart sound, S2 normal heart sound and no murmurs Rate: Negative for bradycardia or tachycardic Rhythm: Negative for abnormal rhythm GI non-tender, non-distended and no masses Inspection: Negative for other Auscultation: normoactive bowel sounds Palpation: soft; Negative for tender, guarding or rebound tenderness present Bladder / Kidney Exam: No other Back/Spine no CVA tenderness and normal to inspection General Back: Negative for CVA tenderness or tenderness Extremity normal to inspection General Extremety ED: Negative for edema, tenderness or other findings General Extremity: Negative for edema or other findings Neuro oriented x3 and CN's II-XII intact bilaterally Sensorium / Orientation: alert, oriented to person, oriented to place and oriented to time; Negative for orientation impaired, confused, lethargic or stuporous Speech: speech normal Motor Exam: strength 5/5 throughout Psych mental status grossly normal Appearance: Negative for unkempt Attitude: No agitated Mood & Affect: Negative for depressed, anxious or tearful Thought Process: normal thought process Skin no wounds General Skin Exam: Negative for jaundice or pallor Lesions: no lesions Rashes: no rashes Trauma: Negative for abrasion or laceration MDM MDM MDM Narrative Medical decision making narrative: 78-year-old female diagnosed with influenza yesterday to urgent care and said she had a positive flu test. Today hypoxic. Screening labs will be obtained with a chest x-ray. She will be given a DuoNeb aerosol. No risk factors or history of DVT or PE. Repeat exam unchanged. Patient receiving a DuoNeb aerosol and oral prednisone because a repeat exam she had a few scattered wheezes. She will be taken off the oxygen and ambulated if she drops her oxygen in the 80s again she will be admitted. Patient walked off oxygen and her pulse ox dropped to 85% and she felt short of breath. The hospitalist on page for admission. She is already received prednisone she also given a DuoNeb aerosol. For her low potassium she will be getting oral K-Dur. History & Record Review Discussion w/independent historian: Patient Additional record(s) reviewed:: Prior inpatient record, Prior outpatient record, Prior ED visit and Prior labs Lab Data Attestation: I reviewed the patient's lab results. Lab results narrative: CBC white count 6.5. H&H 11.5 and 35. Platelets 194. Electrolytes show sodium 135. Potassium 2.9. Gap 6. Normal BUN and creatinine. Glucose 109. Troponin 7. Viral studies were positive for influenza A. Labs: Laboratory Results - last 24 hr 12/03/23 13:20 WBC 6.5 RBC 4.16 L Hgb 11.5 L Hct 35.2 L MCV 84.6 MCH 27.6 MCHC 32.7 RDW Std Deviation 45.2 H RDW Coeff of Saud 14.6 Plt Count 194 MPV 9.7 Immature Gran % (Auto) 0.500 Neut % (Auto) 64.8 Lymph % (Auto) 17.3 L [place] % (Auto) 14.4 H Eos % (Auto) 2.2 Baso % (Auto) 0.8 Absolute Neuts (auto) 4.2 Absolute Lymphs (auto) 1.12 Nucleated RBC % 0 Sodium 135 L Potassium 2.9 L Chloride 98 Carbon Dioxide 31.0 Anion Gap 6 BUN 12 Creatinine 0.80 Estim Creat Clear Calc 51.82 Est GFR (MDRD) Af Amer 89 Est GFR (MDRD) Non-Af 74 BUN/Creatinine Ratio 15.1 Glucose 109 H Calcium 8.6 Troponin I High Sens 7 Radiography Chest X-Ray - ED: 1 View, Read by ED Physician, Read by Radiologist, Heart, Lungs, Mediastinum, Bony Structures, No Acute Disease and Chronic Changes Diagnostic Testing: Clinical Impression(s) from Imaging Studies Chest X-Ray 12/03/23 13:20 IMPRESSION: The lungs are clear. Electronically Signed: Timbo Cox MD at 14:04 EDT , Chest x-ray, portable, single view interpreted both by myself and the radiologist. Shows no acute abnormality. Normal cardiac silhouette. Normal lung trevino. No infiltrate. No effusions. Rhythm Strip Rhythm Strip: Sinus Rhythm Rate: 70 Ectopy: None EKG Initial EKG: Attestation: I personally reviewed and interpreted this EKG as follows: Interpretation: Sinus Rhythm and No Acute Injury Pattern Comments: Normal sinus rhythm rate of 70 no acute signs of [place] or ischemia. No dysrhythmia. Discharge Plan Dx/Rx/DC Orders Clinical Impression: Hypoxia, Influenza, Acute hypokalemia Disposition Disposition: Acute Care [facility]
[2023-12-03 13:51] LABS: Anion Gap 6 (5-15); BUN 12 mg/dL (7-18); BUN/Creat Ratio 15.1 RATIO (10-20); Calcium,Total 8.6 mg/dL (8.5-10.1); Chloride 98 mmol/L (98-107); EST Glomerular Filtration Rate 74 mL/min (>60); Est Glom Filt Rate - Afr Amer 89 mL/min (>60); Estimated Creatinine Clearance 51.82 ml/min; Glucose 109 mg/dL (74-106); Potassium 2.9 mmol/L (3.5-5.1); Sodium Level 135 mmol/L (136-145); Troponin-I HS 7 pg/mL (3.0-54.0)
[2023-12-03] MEDS: predniSONE 20 MG Tablet 60 MG PO (15:17)
[2023-12-03] MEDS: Ipratropium/Albuterol Sulfate 3 ML AMPUL.NEB INHALATION (15:24)
--- NOTE | 2023-12-03 16:17 | HP.PCM.HOS_ITS ---
HPI - General General Date of Admission: 12/03/23 Date of Service: 12/03/23 Chief Complaint: Cough, dyspnea, fever, hypoxia. HPI Narrative The patient is a 78 y/o F w/ PMHx: Allergic rhinitis, Chronic anemia, HTN, Chronic headaches, GERD, OA who presents to the [facility] ED on 12/03/23 with recent history of onset upper respiratory type symptoms with congestion, rhinorrhea, cough, fever, body aches and dyspnea worse when she exerts herself with significant fatigue and malaise starting on Saturday prior to presentation with her reporting a more mild course starting 2 weeks prior with an ongoing cough however it seems to be improving but not but given her ongoing symptoms and worsened dyspnea sensation prompted ED evaluation. Patient to the onset of her illness was evaluated at an urgent care and treated for clinical pneumonia with Augmentin and prednisone therapy but this did not improve her symptoms at all. Workup in the ED included T97.8, heart rate 80, BP 140/61, respiratory rate 16, 87% on room air worse with exertion with improvement to 93% on 3 L nasal cannula, CBC with WBC 6.5, hemoglobin 0.5, MCV 84.6, platelet 194 without marked shift, BMP with sodium 135, potassium 2.9, glucose 109 otherwise not marked appearing, troponin 7, chest x-ray with no acute cardiopulmonary findings, rapid SARS COVID/influenza/RSV with positive influenza A. In the ED patient administered prednisone 60 mg p.o. x 1, potassium 40 mill equivalent p.o. x 1 as well as DuoNeb therapy. [facility] Medical History Anemia Arthritis Back pain Cataracts, bilateral Chronic headaches GERD (gastroesophageal reflux disease) Hearing problem HTN (hypertension) Osteoporosis Shoulder pain Home Medications biotin 1 mg capsule 1 mg PO QDAY 11/22/17 [History Last Taken Unknown] cholecalciferol (vitamin D3) 25 mcg (1,000 unit) capsule 1,000 unit PO QDAY 11/22/17 [History Last Taken Unknown] ipratropium bromide 42 mcg (0.06 %) nasal spray 2 spray intranasal TID 42 days ##45 11/22/17 [History Last Taken Unknown] omeprazole 40 mg capsule,delayed release 40 mg PO DAILY 90 days ##90 11/22/17 [History Last Taken Unknown] vitamin B complex 1 cap PO QDAY 11/22/17 [History Last Taken Unknown] denosumab 60 mg/mL subcutaneous syringe (Prolia) 60 mg subcut [id number] #1 mL 02/02/19 [Rx Last Taken Unknown] zinc 50 mg tablet 50 mg PO DAILY 03/22/20 [History Last Taken Unknown] ascorbate calcium (vitamin C) 500 mg tablet 500 mg PO DAILY 12/29/20 [History Last Taken Unknown] hydrochlorothiazide 12.5 mg tablet 12.5 mg PO QAM #90 tabs 06/11/23 [Rx Last Taken Unknown] vibegron 75 mg tablet (Gemtesa) 75 mg PO DAILY 06/11/23 [History Last Taken Unknown] amlodipine 5 mg tablet 5 mg PO DAILY #90 tabs 08/15/23 [Rx Last Taken Unknown] amitriptyline 25 mg tablet 10 mg PO QHS 12/03/23 [History Last Taken Unknown] Allergy/AdvReac Type Severity Reaction Status Date / Time No Known Allergies Allergy Verified 08/15/23 13:50 Family History Father Arthritis Mother Hypertension Osteoporosis CVA (cerebral vascular accident) Brother Hypertension CVA (cerebral vascular accident) Sister Hypertension Surgical History H/O colonoscopy H/O tubal ligation History of appendectomy Social History (Updated 12/03/23 @ 18:[address] Irma Butler MD) household members: spouse Smoking Status: Never smoker alcohol intake: never substance use type: does not use what type of physical activity do you participate in: none ROS ROS Narrative Admission Review of Systems: CONSTITUTIONAL: No weight loss, + fever, chills, weakness or fatigue. HEENT: + Congestion/rhinorrhea. Eyes: No visual loss, blurred vision, double vision or yellow sclerae. Ears, Nose, Throat: No hearing loss, sore throat. SKIN: No rash or itching, lesions, wounds. CARDIOVASCULAR: No chest pain, chest pressure or chest discomfort, palpitations, edema, orthopnea, syncopal events. RESPIRATORY: + Shortness of breath, cough without marked sputum, wheezing. No hemoptysis. GASTROINTESTINAL: + anorexia. No nausea, vomiting or diarrhea, abdominal pain, melena, BRBPR. GENITOURINARY: No dysuria, frequency, urgency or retention. NEUROLOGICAL: No headache, dizziness, syncope, paralysis, ataxia, numbness or tingling in the extremities, focal weakness, change in bowel or bladder control, seizure. MUSCULOSKELETAL: + muscle, back pain, joint pain or stiffness. HEMATOLOGIC: + Chronic anemia, easy bleeding/bruising. LYMPHATICS: No enlarged nodes. No history of splenectomy. PSYCHIATRIC: No history of depression or anxiety. ENDOCRINOLOGIC: No reports of sweating, cold or heat intolerance. No polyuria or polydipsia. ALLERGIES: + Hx allergic rhinitis. Vital Signs Vital Signs Vital Signs: 12/03/23 12:21 12/03/23 12:37 12/03/23 13:01 Temperature 97.8 F Temperature Source Temporal Pulse Rate 80 70 Respiratory Rate 16 Respiratory Effort Normal Non-Labored Respiratory Depth Normal Respiratory Pattern Normal Blood Pressure 140/61 H 121/47 H Blood Pressure Mean 87 71 Pulse Ox 87 Oxygen Delivery Method Room Air Room Air Oxygen Flow Rate (L/min) 90 12/03/23 13:13 12/03/23 13:15 12/03/23 13:24 Temperature 97.8 F Temperature Source Temporal Pulse Rate 69 Respiratory Rate 17 Respiratory Effort Respiratory Depth Respiratory Pattern Blood Pressure 125/62 H Blood Pressure Mean 83 Pulse Ox 85 92 93 Oxygen Delivery Method Room Air Nasal Cannula Nasal Cannula Oxygen Flow Rate (L/min) 2 2 12/03/23 14:00 12/03/23 15:00 12/03/23 15:27 Temperature 98.2 F Temperature Source Oral Pulse Rate 64 68 68 Respiratory Rate 21 H 19 H 16 Respiratory Effort Respiratory Depth Respiratory Pattern Blood Pressure 140/60 H 112/59 L Blood Pressure Mean 86 76 Pulse Ox 94 93 Oxygen Delivery Method Nasal Cannula Room Air Oxygen Flow Rate (L/min) 2 3 Weight Weight: 144 lb Body Mass Index (BMI) 25.4 Physical Exam Narrative Physical Examination: General: Awake, alert, oriented x 3 and cooperative, seated upright in the ED bed in no apparent distress, fatigued appearing. Skin: Normal color, normal turgor, no icterus, no cyanosis. HEENT: AT/NC, EOMI, PERRLA, mildly dry MM, no carotid bruits or JVD noted. Lungs: Diminished, greater bases, occasional expiratory wheeze but not marked, no rales or rhonchi. Heart: Regular rate and rhythm; no gallop, rub audible. Abdomen: Soft, NTTP, ND, mildly hyperactive BS, no HSM. Extremities: No cyanosis, clubbing, or edema. Neurological: Patient awake, alert, oriented as noted, cognitive function intact; pupils equally reactive to light and accommodation, cranial nerves grossly normal, moving all 4 extremities, no focal deficits, strength mildly to moderately globally Meena secondary to acute presentation complaints. Psychiatric: Affect appears fatigued, no acute evidence of depressive or anxiety feelings. Results Lab / Micro Data 12/03/23 13:20 12/03/23 13:20 Labs: Laboratory Results - last 24 hr 12/03/23 13:20: WBC 6.5, RBC 4.16 L, Hgb 11.5 L, Hct 35.2 L, MCV 84.6, MCH 27.6, MCHC 32.7, RDW Std Deviation 45.2 H, RDW Coeff of Saud 14.6, Plt Count 194, MPV 9.7, Immature Gran % (Auto) 0.500, Neut % (Auto) 64.8, Lymph % (Auto) 17.3 L, [place] % (Auto) 14.4 H, Eos % (Auto) 2.2, Baso % (Auto) 0.8, Absolute Neuts (auto) 4.2, Absolute Lymphs (auto) 1.12, Nucleated RBC % 0, Sodium 135 L, Potassium 2.9 L, Chloride 98, Carbon Dioxide 31.0, Anion Gap 6, BUN 12, Creatinine 0.80, Estim Creat Clear Calc 51.82, Est GFR (MDRD) Af Amer 89, Est GFR (MDRD) Non-Af 74, BUN/Creatinine Ratio 15.1, Glucose 109 H, Calcium 8.6, Troponin I High Sens 7 Micro: Microbiology 12/03/23 13:28 Mucosa - Nose SARS-CoV-2, Influenza & RSV (PCR) - Final Influenzae A Rhythm Strip Rhythm Strip: Sinus Rhythm Rate: 70 Ectopy: None Imaging Radiology Impression Chest X-Ray 12/03/23 13:20 IMPRESSION: The lungs are clear. Electronically Signed: Timbo Cox MD at 14:04 EDT , Assessment & Plan Assessment/Plan (1) Influenza: PLAN: Plan The patient is a 78 y/o F w/ PMHx: Allergic rhinitis, Chronic anemia, HTN, Chronic headaches, GERD, OA who presents to the [facility] ED on 12/03/23 with recent hi story of onset upper respiratory type symptoms with congestion, rhinorrhea, cough, fever, body aches and dyspnea worse when she exerts herself with significant fatigue and malaise starting on Saturday prior to presentation with her reporting a more mild course starting 2 weeks prior with an ongoing cough however it seems to be improving but not but given her ongoing symptoms and worsened dyspnea sensation prompted ED evaluation. #1. Acute Hypoxia w/ General Malaise, Cough, Fever, Dyspnea, General Debility secondary to Influenza A Viral Syndrome: Will admit to [facility], given timeline not candidate for tamiflu regimen, given ED initial reported wheezing will continue IV solumedrol with likely ability to taper in a.m., maintain on oxygen with wean as tolerated, continue ATC budesonide, PRN albuterol, HOB, IS parameters, procalcitonin requested, sputum Cx requested, will continue to hydrate and repeat CXR in the AM to assure there is no overt developing infiltrate following hydration as she does appear at least mildly dry. PT/OT/CM consulted for discharge planning. #2. Hyponatremia, suspect acute on chronic component: Admission sodium 135, patient is on diuretic therapy and last sodium noted 03/08/2023 also 135, however patient with acute illness with decreased oral intake thus will judiciously hydrate and repeat CMP in AM. #3. Hypokalemia: Admission K+ 2.9, magnesium level requested, supplementation given, repeat level in AM. #4. Chronic normocytic anemia: Admission hemoglobin 11.5, MCV 84.6, baseline hemoglobin primarily 12, will continue to trend. #5. Chronic allergic rhinitis: We will continue patient home ipratropium nasal spray. #6. Hypertension: Continue home regimen including hydrochlorothiazide but will restart in a.m. if labs appropriate and patient more hydrated, amlodipine, PRN hydralazine. #7. GERD: We will continue patient home omeprazole regimen. #8. DVT prophylaxis: Lovenox. #9. CODE status: Patient HCPOA is her who is present and living will is currently in place. Discussed CODE status at length including difference between FULL code, DNR-CCA and DNR-CC status. Following discussions about the differences in these status, requested Full Code status. Advanced Care Planning Face to Face Time: 16 minutes. Charges/Coding Visit Charges Inpatient E&M: 89317 Init Hosp L2 Procedures Hospitalists Procedures: 83957 Advncd Care Plan 30 Min
[2023-12-03] MEDS: Potassium Chloride Oral Tablet 20 MEQ 40 MEQ PO (16:28)
--- NOTE | 2023-12-03 16:38 | NURSING ---
MED SURG WHITE FLU A, HYPOXIA, HYPOKALEMIA
[2023-12-03 16:50] LABS: Magnesium 1.9 mg/dL (1.6-2.6)
[2023-12-03 17:10] LABS: Procalcitonin 0.14 ng/mL (0.00-0.09)
[2023-12-03] MEDS: 0.9% Normal Saline (1000mL) 1,000 ML 100 ML IV (19:55)
[2023-12-03] MEDS: Budesonide Respules 0.5 MG/2 ML AMPUL.NEB. INHALATION (20:23)
[2023-12-03] MEDS: Ipratropium Bromide 0.06% NASAL SPRAY 2 SPRAY NASAL (22:06)
[2023-12-03] MEDS: Amitriptyline 10 MG Tablet PO (22:06)
[2023-12-04] MEDS: Acetaminophen 325 MG Tablet 650 MG PO (00:46)
[2023-12-04 02:31] VITALS: BMI 25.0
[2023-12-04 03:51] VITALS: BP 140/68; PULSE 59; RESP 18; TEMP 36.5; O2SAT 96
[2023-12-04] MEDS: 0.9% Saline Lock 10 ML Syringe IV (05:21)
[2023-12-04] MEDS: Ipratropium Bromide 0.06% NASAL SPRAY 2 SPRAY NASAL (05:22)
--- NOTE | 2023-12-04 05:55 | RAD_ITS ---
EXAM: XR CHEST, 1 VIEW CLINICAL INDICATION: Dyspnea, cough Dyspnea, cough TECHNIQUE: Frontal view of the chest. COMPARISON: Chest x-ray 12/03/2023. FINDINGS: LUNGS AND PLEURAL SPACES: There is minimal left lateral basilar atelectasis. No consolidation or edema. No pneumothorax. No effusion. HEART: Unremarkable. Cardiac silhouette not enlarged. MEDIASTINUM: Central airways and mediastinal contour are unremarkable. BONES/JOINTS: Unremarkable. No acute fracture. SOFT TISSUES: Unremarkable. RAD/Chest 1 View (Portable) IMPRESSION: No radiographic evidence of acute cardiopulmonary disease. Electronically Signed: Meño Whitehead MD at 5:56 EDT Reading Location ID and State: [facility] / [place] , Service support ,
[2023-12-04 06:39] VITALS: PULSE 69; RESP 18; O2SAT 94
[2023-12-04] MEDS: Budesonide Respules 0.5 MG/2 ML AMPUL.NEB. INHALATION (06:39)
[2023-12-04 07:35] LABS: Absolute Neutrophil Count 5.7 X10^3/uL (2.0-7.7); Basophil# 0.01 X10^3/uL; Basophil% 0.1 % (0-1); Hemoglobin 12.6 g/dL (12.0-15.0); Lymphocyte % 11.6 % (19-41); Mean Corp Hgb Conc 33.2 g/dL (32-36); Mean Corpuscular Hgb 27.9 pg (27.0-32.0); Mean Corpuscular Volume 84.1 fL (81-99); Mean Platelet Vol. 10.2 fl (6.2-12.0); Monocyte# 0.37 X10^3/uL; Monocyte% 5.4 % (0-10); NRBC Flagged by Analyzer 0 % (0-5); Neutrophil # 5.66 X10^3/uL (2.7-7.7); Neutrophil % 82.3 % (47-70); Platelet Count 242 K/mm3 (150-450); RBC Distribution Width CV 14.5 % (11.6-14.6); RBC Distribution Width SD 44.4 fl (35.1-43.9); Red Blood Count 4.52 M/mm3 (4.2-5.4); White Blood Count 6.9 K/mm3 (4.4-11.0)
[2023-12-04 08:02] LABS: ALB/GLOB Ratio 0.8 RATIO (0.9-2.4); AST(SGOT) 36 U/L (15-37); Alanine Aminotransfer ALT/SGPT 38 U/L (13-56); Albumin, Serum 3.4 g/dL (3.2-5.0); Alkaline Phosphatase 73 U/L (45-117); Anion Gap 9 (5-15); BUN 13 mg/dL (7-18); BUN/Creat Ratio 18.1 RATIO (10-20); Chloride 99 mmol/L (98-107); Creatinine, Serum 0.72 mg/dL (0.55-1.02); EST Glomerular Filtration Rate 83 mL/min (>60); Est Glom Filt Rate - Afr Amer 100 mL/min (>60); Estimated Creatinine Clearance 51.42 ml/min; Globulin 4.1 g/dL (2.2-4.2); Glucose 154 mg/dL (74-106); Potassium 3.3 mmol/L (3.5-5.1); Protein, Total 7.5 g/dL (6.4-8.2); Sodium Level 135 mmol/L (136-145)
[2023-12-04 09:20] VITALS: BP 151/66; PULSE 76; RESP 18; TEMP 36.6; O2SAT 93; O2SAT 94
[2023-12-04] MEDS: Vibegron 75 MG TABLET PO (09:27)
[2023-12-04] MEDS: amLODIPine 5 MG Tablet PO (09:27)
[2023-12-04] MEDS: Potassium Chloride Oral Tablet 20 MEQ 40 MEQ PO (09:27)
[2023-12-04] MEDS: hydroCHLOROthiazide 12.5mg 12.5 MG PO (09:27)
[2023-12-04] MEDS: Pantoprazole Sodium 40 MG Tablet PO (09:27)
[2023-12-04 09:30] VITALS: O2SAT 94; O2SAT 95
[2023-12-04 09:33] VITALS: O2SAT 94
--- NOTE | 2023-12-04 10:14 | DCINST_ITS ---
Discharge Instructions Diet Discharge Diet: No restrictions Activity Discharge Activity: No Restrictions Weight Bearing Status: Full weight bearing Follow Up Care Test Results: Test results from this visit will be discussed in further detail at your follow- up appointment, if applicable. Discharge Plan Admission Admit Date/Time: 12/03/23 16:17 Primary Reason for Your Visit: shortness of breath, flu A infection Attending Provider: Derrick Durán Primary Care Provider: Isaiah Zapata Consulting Providers: Irma Butler Instructions Additional Instructions / Restrictions: Please take 3 more days of steroids as noted below to complete a 5 day course of steroids total. Follow up with your PCP as needed. Discharge Orders/Prescriptions Prescriptions: New prednisone 20 mg tablet 40 mg PO DAILY 3 Days Qty: 6 0RF Continued omeprazole 40 mg capsule,delayed release(DR/EC) 40 mg PO DAILY 90 Days Qty: 90 Patient Comments: ipratropium bromide 42 mcg (0.06 %) spray,non-aerosol 2 spray INTRANASAL TID 42 Days Qty: 45 Patient Comments: vitamin B complex capsule 1 cap PO QDAY cholecalciferol (vitamin D3) 1,000 unit capsule 1,000 unit PO QDAY biotin 1 mg capsule 1 mg PO QDAY zinc 50 mg tablet 50 mg PO DAILY ascorbate calcium (vitamin C) 500 mg tablet 500 mg PO DAILY Gemtesa 75 mg tablet 75 mg PO DAILY Patient Comments: take 1 tablet by mouth once daily hydrochlorothiazide 12.5 mg tablet 12.5 mg PO QAM Qty: 90 1RF amlodipine 5 mg tablet 5 mg PO DAILY Qty: 90 2RF amitriptyline 25 mg tablet 10 mg PO QHS Prolia 60 mg/mL syringe 60 mg SC [id number] Qty: 1 1RF Referrals / Follow Up: Isaiah Zapata DO [Primary Care Provider] - Disposition Disposition (needs filled in before D/C Order can be placed): Home, Self Care
--- NOTE | 2023-12-04 10:17 | PCM.DC.SUM ---
Providers Date of Admission: 12/03/23 Date of Discharge: 12/04/23 Primary Care Physician: Dr. Isaiah Zapata DO Reason For Visit: HYPOXIA, INFLUENZA A Diagnosis Discharge Diagnosis (1) Influenza: Status: Acute Code(s): J11.1 - Influenza due to unidentified influenza virus with other respiratory manifestations Medications at Discharge Home Medications biotin 1 mg capsule 1 mg PO QDAY 11/22/17 cholecalciferol (vitamin D3) 25 mcg (1,000 unit) capsule 1,000 unit PO QDAY 11/22/17 ipratropium bromide 42 mcg (0.06 %) nasal spray 2 spray intranasal TID 42 days ##45 11/22/17 omeprazole 40 mg capsule,delayed release 40 mg PO DAILY 90 days ##90 11/22/17 vitamin B complex 1 cap PO QDAY 11/22/17 denosumab 60 mg/mL subcutaneous syringe (Prolia) 60 mg subcut [id number] #1 mL 02/02/19 zinc 50 mg tablet 50 mg PO DAILY 03/22/20 ascorbate calcium (vitamin C) 500 mg tablet 500 mg PO DAILY 12/29/20 hydrochlorothiazide 12.5 mg tablet 12.5 mg PO QAM #90 tabs 06/11/23 vibegron 75 mg tablet (Gemtesa) 75 mg PO DAILY 06/11/23 amlodipine 5 mg tablet 5 mg PO DAILY #90 tabs 08/15/23 amitriptyline 25 mg tablet 10 mg PO QHS 12/03/23 prednisone 20 mg tablet 40 mg (2 x 20 mg) PO DAILY 3 days #6 tabs 12/04/23 Hospital Course Operations None Procedures EKG and - (Chest x-ray ) Summary of Care Provided Minutes Spent on Discharge: 35 Hospital Course: Patient is a 78-year-old female who presented to [facility] ED on 12/03/2023 with worsening shortness of breath and recent influenza A diagnosis. Short hospital course as noted below. Discharged home with no therapy needs in stable condition on 12/03. 1. Influenza A infection with mild hypoxia, improved Presented with several day history of URI symptoms along with fevers, body aches and dyspnea on exertion. Tested positive for influenza A in the ED. Had mild hypoxia on exertion, did not wear supplemental oxygen at home. Urine antigens negative. Chest x-ray nonacute. ? Was determined to be outside the window for Tamiflu, was not treated with this. Was treated with IV Solu-Medrol and scheduled DuoNebs during short hospitalization with significant improvement. Completed O2 ambulatory test on day of discharge, did not require any supplemental oxygen on discharge. Discharged on prednisone 40 mg daily to complete 5-day course of steroids total. 2. Hypokalemia, improved ? Potassium 2.9 on admit. Magnesium in normal range. Improved with repletion. Chronic medical conditions: ? Chronic normocytic anemia: Baseline hemoglobin 11-12, remained stable at baseline during hospitalization. ? Chronic allergic rhinitis: Continue home meds. ? Hypertension: Stable. Continue home hydrochlorothiazide and amlodipine. ? GERD: Continue home PPI. ? Overactive bladder: Continue home meds. Total clinical time spent by myself addressing the patient's medical issues, reviewing all the data, and collaborating with patient's care team: 35 minutes. Physical Exam Narrative Physical Examination: General: Awake, alert, oriented x 3 and cooperative, seated upright in the ED bed in no apparent distress, had good energy on day of discharge. Skin: Normal color, normal turgor, no icterus, no cyanosis. HEENT: AT/NC, EOMI, PERRLA, mildly dry MM, no carotid bruits or JVD noted. Lungs: Mildly diminished, otherwise good air movement throughout, no wheezing or crackles noted. Heart: Regular rate and rhythm; no gallop, rub audible. Abdomen: Soft, NTTP, ND, mildly hyperactive BS, no HSM. Extremities: No cyanosis, clubbing, or edema. Neurological: Patient awake, alert, oriented as noted, cognitive function intact; pupils equally reactive to light and accommodation, cranial nerves grossly normal, moving all 4 extremities, no focal deficits. Psychiatric: Good energy, no acute evidence of anxious or depressive feelings. Weight / BMI Weight Weight: 64.2 kg Body Mass Index (BMI) 25.0 ABG / Lab / Microbiology Data 12/04/23 06:03 12/04/23 06:03 Laboratory: Laboratory Results - last 24 hr 12/03/23 13:20: WBC 6.5, RBC 4.16 L, Hgb 11.5 L, Hct 35.2 L, MCV 84.6, MCH 27.6, MCHC 32.7, RDW Std Deviation 45.2 H, RDW Coeff of Saud 14.6, Plt Count 194, MPV 9.7, Immature Gran % (Auto) 0.500, Neut % (Auto) 64.8, Lymph % (Auto) 17.3 L, Troup % (Auto) 14.4 H, Eos % (Auto) 2.2, Baso % (Auto) 0.8, Absolute Neuts (auto) 4.2, Absolute Lymphs (auto) 1.12, Nucleated RBC % 0, Sodium 135 L, Potassium 2.9 L, Chloride 98, Carbon Dioxide 31.0, Anion Gap 6, BUN 12, Creatinine 0.80, Estim Creat Clear Calc 51.82, Est GFR (MDRD) Af Amer 89, Est GFR (MDRD) Non-Af 74, BUN/Creatinine Ratio 15.1, Glucose 109 H, Calcium 8.6, Magnesium 1.9, Troponin I High Sens 7, Procalcitonin 0.14 H 12/04/23 06:03: WBC 6.9, RBC 4.52, Hgb 12.6, Hct 38.0, MCV 84.1, MCH 27.9, MCHC 33.2, RDW Std Deviation 44.4 H, RDW Coeff of Saud 14.5, Plt Count 242, MPV 10.2, Immature Gran % (Auto) 0.600, Neut % (Auto) 82.3 H, Lymph % (Auto) 11.6 L, Troup % (Auto) 5.4, Eos % (Auto) 0.0, Baso % (Auto) 0.1, Absolute Neuts (auto) 5.7, Absolute Lymphs (auto) 0.80 L, Nucleated RBC % 0, Sodium 135 L, Potassium 3.3 L, Chloride 99, Carbon Dioxide 27.0, Anion Gap 9, BUN 13, Creatinine 0.72, Estim Creat Clear Calc 51.42, Est GFR (MDRD) Af Amer 100, Est GFR (MDRD) Non-Af 83, BUN/Creatinine Ratio 18.1, Glucose 154 H, Calcium 9.0, Total Bilirubin 0.30, AST 36, ALT 38, Alkaline Phosphatase 73, Total Protein 7.5, Albumin 3.4, Globulin 4.1, Albumin/Globulin Ratio 0.8 L Microbiology: Microbiology 12/03/23 20:32 Mucosa - Nasopharyngeal Respiratory Panel (PCR) - Final Influenza A (Subtype H3) 12/03/23 20:50 Urine, Random Legionella Antigen - Final 12/03/23 20:50 Urine, Random Streptococcus pneumoniae Antigen (M - Final 12/03/23 13:28 Mucosa - Nose SARS-CoV-2, Influenza & RSV (PCR) - Final Influenzae A Radiography Diagnostic Testing: Radiology Impression Chest X-Ray 12/03/23 13:20 IMPRESSION: The lungs are clear. Electronically Signed: Timbo Cox MD at 14:04 EDT , Chest X-Ray 12/04/23 05:55 IMPRESSION: No radiographic evidence of acute cardiopulmonary disease. Electronically Signed: Meño Whitehead MD at 5:56 EDT , D/C Instructions Discharge Diet: No restrictions Weight Bearing Status: Full weight bearing Meaningful Use Info Meaningful Use Meaningful Use Diagnoses (Choose all that apply): None applicable Ischemic Stroke Statin Dosing Therapy Reference: STATIN DOSE THERAPY REFERENCE: * Patients > 75 years receive moderate or high dose statin therapy. * Patients 75 years or YOUNGER should receive HIGH intensity statin dose unless contraindicated. You will be required to document reason for non-treatment if statin daily dose does not meet guidelines. HIGH DOSE STATIN THERAPY DAILY Atorvastatin > than or = to 40 mg Rosuvastatin > than or = to 20 mg Amlodipine + Atorvastatin > than or = to 2.5/40 mg Ezetimibe + Simvastatin 10/80 mg Simvastatin 80mg Discharge Plan Admission Admit Date/Time: 12/03/23 16:17 Primary Reason for Your Visit: shortness of breath, flu A infection Attending Provider: Derrick Durán Primary Care Provider: Isaiah Zapata Consulting Providers: Irma Butler Instructions Additional Instructions / Restrictions: Please take 3 more days of steroids as noted below to complete a 5 day course of steroids total. Follow up with your PCP as needed. Discharge Orders/Prescriptions Prescriptions: New prednisone 20 mg tablet 40 mg PO DAILY 3 Days Qty: 6 0RF Continued omeprazole 40 mg capsule,delayed release(DR/EC) 40 mg PO DAILY 90 Days Qty: 90 Patient Comments: ipratropium bromide 42 mcg (0.06 %) spray,non-aerosol 2 spray INTRANASAL TID 42 Days Qty: 45 Patient Comments: vitamin B complex capsule 1 cap PO QDAY cholecalciferol (vitamin D3) 1,000 unit capsule 1,000 unit PO QDAY biotin 1 mg capsule 1 mg PO QDAY zinc 50 mg tablet 50 mg PO DAILY ascorbate calcium (vitamin C) 500 mg tablet 500 mg PO DAILY Gemtesa 75 mg tablet 75 mg PO DAILY Patient Comments: take 1 tablet by mouth once daily hydrochlorothiazide 12.5 mg tablet 12.5 mg PO QAM Qty: 90 1RF amlodipine 5 mg tablet 5 mg PO DAILY Qty: 90 2RF amitriptyline 25 mg tablet 10 mg PO QHS Prolia 60 mg/mL syringe 60 mg SC [id number] Qty: 1 1RF Referrals / Follow Up: Isaiah Zapata DO [Primary Care Provider] - Disposition Disposition (needs filled in before D/C Order can be placed): Home, Self Care Charges/Coding Visit Charges Inpatient E&M: 17761 Disch Hosp >30min
--- NOTE | 2023-12-04 10:40 | CASEMGMT ---
RN?CM?RECORD CUTTER?CM?to room to meet with patient for initial transition planning/care coordination?assessment.?RN?CM?introduced self and role at [facility].? Pt voices understanding and consents to?assessment?at this time.? Pt sitting on edge of bed. @ bedside.? Pt is A/O at this time and answers all questions appropriately.?? Care providers, pharmacy, and demographics verified/updated at this time. PCP: Dr Isaiah Zapata Specialists: Dr Nunez-urology Preferred Pharmacy [facility] Insurance: [facility] [place], Physician's [place] Prescription Benefit:?yes LNOK: , [place] Living Arrangements: Lives w/her in ranch-style home w/ramp entrance. Independent w/ADL's and IADL's. Transportation:?Pt states drives self and states no transportation concerns at this time.? also drives. DME: ? Denies using any DME and denies needs.? She does have 2 W/C's and several walkers available, but does not use. HHC/SNF: No hx of either. No needs identified. Pt wishes to return home and states has no concerns with going home. PLAN:??Home Alesha BSN?RN?CM
[2023-12-04 11:00] VITALS: BP 110/75; PULSE 71; RESP 16; TEMP 36.6; O2SAT 93
--- NOTE | 2023-12-04 11:12 | PHA.DC_ITS ---
Pharmacy [facility] Pharmacy Service has performed discharge medication reconciliation and counseling for this patient. 1. PREDNISONE 40MG PO DAILYCM X 3 DAYS The patient's discharge medication list was reviewed for discrepancies and discrepancies were resolved. The patient was counseled on the following discharge medications and changes in medications for homegoing were reviewed. The Reason for Use, instructions for use, and potential side effects were reviewed for all new medications. The patient's questions regarding all of their medications were answered. The patient was able to verbally demonstrate an understanding of their discharge medications. Medications at Discharge Home Medications biotin 1 mg capsule 1 mg PO QDAY 11/22/17 cholecalciferol (vitamin D3) 25 mcg (1,000 unit) capsule 1,000 unit PO QDAY 11/22/17 ipratropium bromide 42 mcg (0.06 %) nasal spray 2 spray intranasal TID 42 days ##45 11/22/17 omeprazole 40 mg capsule,delayed release 40 mg PO DAILY 90 days ##90 11/22/17 vitamin B complex 1 cap PO QDAY 11/22/17 denosumab 60 mg/mL subcutaneous syringe (Prolia) 60 mg subcut [id number] #1 mL 02/02/19 zinc 50 mg tablet 50 mg PO DAILY 03/22/20 ascorbate calcium (vitamin C) 500 mg tablet 500 mg PO DAILY 12/29/20 hydrochlorothiazide 12.5 mg tablet 12.5 mg PO QAM #90 tabs 06/11/23 vibegron 75 mg tablet (Gemtesa) 75 mg PO DAILY 06/11/23 amlodipine 5 mg tablet 5 mg PO DAILY #90 tabs 08/15/23 amitriptyline 25 mg tablet 10 mg PO QHS 12/03/23 prednisone 20 mg tablet 40 mg (2 x 20 mg) PO DAILY 3 days #6 tabs 12/04/23
== END 2023-12-04 11:30 | disposition home or self-care (01) | DRG 194 ==
LOC: ED 16:03 → MS3 18:52
PROVIDERS: Admitting Provider Family Medicine; Emergency Provider Emergency Medicine; PCP Family Medicine; Visit Provider Hospitalist
DX: J10.1 Influenza due to other identified influenza virus with other respiratory manifestations (principal); E87.1 Hypo-osmolality and hyponatremia; I10 Essential (primary) hypertension; D64.9 Anemia, unspecified; E87.6 Hypokalemia; K21.9 Gastro-esophageal reflux disease without esophagitis; J30.9 Allergic rhinitis, unspecified; R09.02 Hypoxemia; N32.81 Overactive bladder; Z98.51 Tubal ligation status; Z90.49 Acquired absence of other specified parts of digestive tract
CPT/HCPCS: 36415; 71045; 80048; 80053; 83735; 84145; 84484; 85025; 87449; 87631; 87633; 93005; 94640; 94668; 99285; J7030; A4216

== ENCOUNTER → 2023-12-30 | Outpatient (CLI) | payer MEDICARE, OTHER, SELFPAY ==
[2023-12-30 12:51] LABS: Anion Gap 7 (5-15); BUN 10 mg/dL (7-18); BUN/Creat Ratio 13.4 RATIO (10-20); Chloride 102 mmol/L (98-107); Creatinine, Serum 0.75 mg/dL (0.55-1.02); EST Glomerular Filtration Rate 80 mL/min (>60); Est Glom Filt Rate - Afr Amer 96 mL/min (>60); Glucose 92 mg/dL (74-106); Potassium 3.6 mmol/L (3.5-5.1); Sodium Level 138 mmol/L (136-145)
== END | disposition home or self-care (01) ==
LOC: BIMLAB 08:32
PROVIDERS: PCP Family Medicine; Visit Provider Family Medicine
DX: E87.6 Hypokalemia (principal)
CPT/HCPCS: 36415; 80048

== ENCOUNTER → 2024-02-18 | Outpatient (CLI) | payer MEDICARE, OTHER, SELFPAY ==
--- NOTE | 2024-02-18 17:36 | RAD_ITS ---
STUDY: X-RAY CHEST REASON FOR EXAM: Female, 78 years old. Atypical chest pain TECHNIQUE: PA and lateral views of the chest. COMPARISON: 12/04/2023 FINDINGS: The lungs are clear and expanded. There is no demonstrated pleural abnormality. Normal size heart. Normal mediastinum and caitlin. Normal visualized pulmonary arteries. Normal visualized aortic arch and descending thoracic aorta. There are diffuse degenerative changes of the visualized thoracic spine. Normal visualized ribs, clavicles, and shoulders. There is no demonstrated abnormality of the visualized soft tissue structures of the upper abdomen. RAD/Chest PA and Lateral IMPRESSION: Normal x-ray examination of the chest. Electronically Signed: Rigo Bobo MD at 8:19 EDT ,
== END | disposition home or self-care (01) ==
LOC: RAD 17:23
PROVIDERS: PCP Family Medicine; Referring Provider Nurse Practitioner; Visit Provider Nurse Practitioner
DX: R05.9 Cough, unspecified (principal)
CPT/HCPCS: 71046

== ENCOUNTER → 2024-12-31 | Outpatient (CLI) | payer MEDICARE, OTHER, SELFPAY ==
[2024-12-31 12:31] LABS: Hematocrit 37.6 % (37-47); Hemoglobin 12.5 g/dL (12.0-15.0); Mean Corp Hgb Conc 33.2 g/dL (32-36); Mean Corpuscular Hgb 28.9 pg (27.0-32.0); Mean Corpuscular Volume 86.8 fL (81-99); Mean Platelet Vol. 10.3 fl (6.2-12.0); Platelet Count 281 K/mm3 (150-450); RBC Distribution Width CV 14.6 % (11.6-14.6); RBC Distribution Width SD 46.8 fl (35.1-43.9); Red Blood Count 4.33 M/mm3 (4.2-5.4)
[2024-12-31 13:13] LABS: ALB/GLOB Ratio 1.6 RATIO (0.9-2.4); AST(SGOT) 28 U/L (<=31); Alanine Aminotransfer ALT/SGPT 22 U/L (<=34); Albumin, Serum 4.1 g/dL (3.4-4.8); Alkaline Phosphatase 63 U/L (35-104); Anion Gap 11 (5-15); BUN 11 mg/dL (4-19); BUN/Creat Ratio 14.2 RATIO (10-20); Calcium,Total 9.2 mg/dL (7.6-11.0); Carbon Dioxide 27.3 mmol/L (21.0-32.0); Chloride 98 mmol/L (98-108); Creatinine, Serum 0.77 mg/dL (0.70-1.20); EST Glomerular Filtration Rate 77 (>60); Globulin 2.6 g/dL (2.2-4.2); Glucose 106 mg/dL (70-99); Potassium 3.7 mmol/L (3.3-5.1); Protein, Total 6.7 g/dL (5.9-8.4); Sodium Level 136 mmol/L (133-145); Total Bilirubin 0.26 mg/dL (0.00-1.30)
== END | disposition home or self-care (01) ==
LOC: BIMLAB 10:59
PROVIDERS: PCP Family Medicine; Referring Provider Family Medicine; Visit Provider Family Medicine
DX: I10 Essential (primary) hypertension (principal); R73.03 Prediabetes
CPT/HCPCS: 36415; 80053; 85027

== ENCOUNTER → 2025-07-28 | Outpatient (CLI) | payer MEDICARE, OTHER, SELFPAY ==
--- NOTE | 2025-07-28 11:00 | BD_ITS ---
PROCEDURE: DEXA BONE DENSITY STUDY 07/28/2025 REASON FOR EXAM: OSTEOPOROSIS F, age 80 y/o . Postmenopausal. TECHNIQUE: Procedure Code: BDDBD Modality: DX Procedure: DEXA BONE DENSITY STUDY COMPARISON: December 11, 2022. FINDINGS: BMD and T-SCORES Lumbar spine: 1.015 g/cm2, T-score -0.3 Levels: L1 through L4 Change from prior: Improvement of 2.9%. Left femoral neck: 0.743 g/cm2, T-score -1.0 Femoral neck comparison data not recommended for monitoring change. Left total hip: 0.838 g/cm2, T-score -0.9 Change from prior: Loss of 2%. Right femoral neck: 0.694 g/cm2, T-score -1.4 Femoral neck comparison data not recommended for monitoring change. Right total hip: 0.896 g/cm2, T-score -0.4 Change from prior: Improvement of 1.5%. The World Health Organization has defined the following categories based on bone density: Normal bone density: T-score equal to or greater than -1.0 Osteopenia: T-score between -1.0 and -2.5 Osteoporosis: T-score equal to or less than -2.5 FRAX (or Comparable) Fracture Risk Assessment: 10 Year Probability of Fracture: Major Osteoporotic Fracture: 19% Hip Fracture: 4.2% (Note: FRAX is not to be reported in setting of normal range bone density, osteoporosis on DEXA, known history of osteoporosis, prior osteoporotic hip or vertebral fracture, or for any patient undergoing pharmacological treatment for bone loss.) The National Osteoporosis Foundation (NOF) recommends pharmacological treatment for patients with a FRAX 10-year risk of 3% or higher for a hip fracture, or 20% or higher for a major osteoporotic fracture, to prevent osteoporosis and reduce fracture risk. The patient does meet the pharmacological treatment recommendations for prevention of osteoporosis. BD/Dexa Bone Density Study IMPRESSION: OSTEOPENIA. Recommend follow-up as clinically warranted. Reading Location: [place] [id number]
== END | disposition home or self-care (01) ==
LOC: OPBD 10:54
PROVIDERS: PCP Family Medicine; Referring Provider Family Medicine; Visit Provider Family Medicine
DX: M81.0 Age-related osteoporosis without current pathological fracture (principal)
CPT/HCPCS: 77080